=== PATIENT | female | born 1980 | race Caucasian/White ===

== ENCOUNTER 2023-03-22 09:25 | Inpatient (IN) | payer SELFPAY ==
[2023-03-22] VITALS (32 sets, daily range): BP systolic 113–151; BP diastolic 50–94; PULSE 100–129; RESP 11–23; TEMP 36.4–37.2; O2SAT 89–99; BMI 49.0
--- NOTE | ~2023-03-22 | CT_ITS ---
EXAMINATION: CT abdomen pelvis w con DATE: 03/22/2023 10:56 INDICATION: Right lower quadrant pain TECHNIQUE: Computed tomography (CT) of the abdomen and pelvis was performed with 100 mL Omnipaque-350 intravenous contrast. Automated exposure control and iterative reconstruction technique were employe d. The dose-length product was 1539.99 mGy-cm. COMPARISON: None FINDINGS: Lung bases are clear. Heart size is normal. No pericardial or pleural effusion. Liver, gallbladder, s pleen, pancreas, bilateral adrenal glands and kidneys are normal. There are few diverticula along the sigmoid colon with focal wall thickening and surrounding inflammatory stranding consistent with dive rticulitis. There is some extraluminal gas along the sigmoid mesentery and scattered throughout the p rimarily nondependent more cephalad abdomen. In the deep pelvis there are a couple small gas and flui d collections 3 x 1 cm in 2 x 1 cm with mild peripheral enhancement which could represent developing abscesses. No larger drainable abscess identified. Small bowel and appendix are normal. 1.9 cm periph erally enhancing corpus luteum cyst in the left ovary. Bladder, uterus and right adnexa are unremarka ble. No pathologically enlarged abdominal or pelvic lymphadenopathy. Moderate lower thoracic and lum bosacral spondylosis. 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 IMPRESSION: 1. Perforated sigmoid diverticulitis with small amount of scattered free peritoneal gas and minimal f luid. No drainable abscess. Reviewed, dictated and finalized at location A. IMPRESSION: 1. Perforated sigmoid diverticulitis with small amount of scattered free perito luann gas and minimal fluid. No drainable abscess.
--- NOTE | 2023-03-22 09:48 | ED.ABDPAIN ---
HPI - Abdominal Pain General Chief Complaint: Abdominal Pain Stated Complaint: lower abdominal pain Time Seen by Provider: 03/22/23 09:33 History of Present Illness HPI narrative: 42-year-old female no medical problems presents to the emergency room for evaluation of right lower quadrant pain that has been intermittent for 1 week. Patient describes the pain as a sharp and stabbing pain. Patient attempted taking naproxen and a stool softener with no relief. States pain does not radiate. Pain is worse with ambulation and movement. Denies fevers. Denies nausea vomiting diarrhea or constipation. Related Data Home Medications Medication Instructions Recorded Confirmed No Home Medications 03/22/23 03/22/23 Allergies Allergy/AdvReac Type Severity Reaction Status Date / Time No Known Allergies Allergy Verified 03/22/23 09:39 Review of Systems Review of Systems: CONSTITUTIONAL: Denies fever, chills, or sweats. EYES: Denies visual changes, redness, or discharge. ENT: Denies rhinorrhea, congestion, sore throat, or otalgia. CARDIOVASCULAR: Denies chest pain, palpitations, or edema. RESPIRATORY: Denies cough or dyspnea. GASTROINTESTINAL: Per HPI GENITOURINARY: Denies dysuria or hematuria. SKIN: Denies rash or itching. MUSCULOSKELETAL: Denies back pain, joint pain, or myalgia. NEUROLOGIC: Denies headache, numbness, dizziness, or weakness. PSYCHIATRIC: Denies anxiety or depression. Exam Narrative: GENERAL: Well-appearing, well-nourished, no physical limitations, and in no acute distress. HEAD: Normocephalic, atraumatic. EYES: Conjunctivae normal, PERRLA and EOMI. CHEST: Clear to auscultation. No respiratory distress. No wheezes rales or rhonchi. HEART: Regular rate and rhythm. No murmur heard. Normal peripheral pulses. ABDOMEN: Soft, RLQ tenderness, nondistended, normal active bowel sounds. Right. Positive psoas and obturator sign BACK: No CVA tenderness EXTREMITIES: Normal range of motion. No edema. No clubbing or cyanosis SKIN: Warm, dry, no rash. No noted wounds NEURO: No focal deficits. Alert and oriented x3. MAEW. CN's II-XI intact bilaterally, normal gait PSYCH: Cooperative. Normal mood and affect. Course Vital Signs Vital signs: Vital Signs Temperature 36.4 C L 03/22/23 09:27 Pulse Rate 129 H 03/22/23 09:27 Respiratory Rate 20 03/22/23 09:27 Blood Pressure 151/82 H 03/22/23 09:27 Pulse Oximetry 99 03/22/23 09:27 Oxygen Delivery Room Air 03/22/23 09:27 Temperature 36.4 C L 03/22/23 09:27 Pulse Rate 119 H 03/22/23 11:16 Respiratory Rate 19 03/22/23 11:16 Blood Pressure 135/76 03/22/23 11:16 Pulse Oximetry 96 03/22/23 11:16 Oxygen Delivery Room Air 03/22/23 09:27 MDM - Abdominal Pain MDM Narrative Medical decision making narrative: 42-year-old female no medical problems presented to the emergency room complaints of right lower quadrant pain for [address] scan shows a diverticulitis right lower quadrant with microperforation. Labs are unremarkable. Patient was given IV Zosyn. Discussed case with Dr. Ordaz. Will admit patient to hospital for IV antibiotics and hydration. Lab Data 03/22/23 09:47 03/22/23 09:47 Labs: Lab Results 03/22/23 03/22/23 03/22/23 Range/Units 09:47 09:55 11:22 WBC 10.3 H (4.5-10.0) K/mm3 RBC 4.53 (4.2-5.4) M/mm3 Hgb 13.8 (12.0-15.0) g/dL Hct 43.1 (37.0-47.0) % MCV 95.1 (80-100) fl MCH 30.5 (26-34) pg MCHC 32.0 (32-36) g/dl RDW 11.9 (11.5-14.5) % Plt Count 308 (150-375) k/mm3 MPV 10.9 H (7.4-10.4) fl Immature Gran % (Auto) 0.3 (0-0.5) % Neut % (Auto) 65.9 (45.5-73.1) % Lymph % (Auto) 22.4 (18.3-44.2) % [place] % (Auto) 9.0 H (2.6-8.5) % Eos % (Auto) 1.6 (0-4.4) % Baso % (Auto) 0.8 (0.2-1.2) % Lymph # (Auto) 2.32 (0.9-3.2) K/mm3 [place] # (Auto) 0.9 H (0.1-0.6) K/mm3 Eos # (Auto) 0.2 (0-0.3) K/mm3 B
[2023-03-22 09:56] LABS: Basophils Absolute Auto 0.1 K/mm3 (0.0-0.1); Basophils Percent Auto 0.8 % (0.2-1.2); Eosinophils Absolute Auto 0.2 K/mm3 (0-0.3); Eosinophils Percent Auto 1.6 % (0-4.4); Hematocrit 43.1 % (37.0-47.0); Hemoglobin 13.8 g/dL (12.0-15.0); Immature Granulocyte Absolute 0.03 K/mm3 (0.00-0.031); Immature Granulocyte Percent A 0.3 % (0-0.5); Lymphocytes Absolute Auto 2.32 K/mm3 (0.9-3.2); Lymphocytes Percent Auto 22.4 % (18.3-44.2); Mean Corpuscular Hemoglobin 30.5 pg (26-34); Mean Corpuscular Volume 95.1 fl (80-100); Mean Platelet Volume 10.9 fl (7.4-10.4); Monocytes Absolute Auto 0.9 K/mm3 (0.1-0.6); Neutrophils Absolute Auto 6.8 K/mm3 (1.3-6.7); Neutrophils Percent Auto 65.9 % (45.5-73.1); Platelet Count Result 308 k/mm3 (150-375); Red Blood Count 4.53 M/mm3 (4.2-5.4); Red Cell Distribution Width 11.9 % (11.5-14.5); White Blood Count 10.3 K/mm3 (4.5-10.0)
[2023-03-22] MEDS: SODIUM CHLORIDE 0.9% IV 1,000 ML 999 ML IV CONT (10:00)
[2023-03-22 10:12] LABS: Alanine Aminotransferase 31 U/L (6-35); Alkaline Phosphatase 156 U/L (38-126); Anion Gap 5 mmol/L (8-16); Aspartate Amino Transferase 29 U/L (14-36); Bilirubin,Total 0.4 mg/dL (0.2-1.3); Blood Urea Nitrogen 7 mg/dL (7-17); Carbon Dioxide 28 mmol/L (22-30); Chloride 100 mmol/L (98-107); Estimated CRCL calculation 140 ml/min; Estimated Glomerular Filt Rate > 60; Glucose 130 mg/dL (65-110); Lipase 85 U/L (23-300); Potassium 4.3 mmol/L (3.4-5.0); Sodium 133 mmol/L (137-145)
[2023-03-22 10:16] LABS: Appearance Urine Cloudy (Clear); Bacteria Urine 3+ /hpf; Bilirubin Urine 1+ (Negative); Blood Urine Negative (Negative); Color Urine Dark Yellow (Yellow); Glucose Urine UA Negative (Negative); Ketones Urine Trace mg/dL (Negative); Leukocyte Esterase Ur 1+ LEU/UL (Negative); Need Manual Microscopic Reviewed; Nitrate Urine Negative (Negative); Non Pathogenic Casts 0-2; Protein Urine 2+ mg/dL (Negative); Specific Grav Ur 1.031 (1.001-1.035); Squamous Epithelial Cell Urine Many /hpf (Few); WBC Urine 21-50 /hpf; pH Urine 5.5 (5.0-9.0)
[2023-03-22 11:09] LABS: Add Urine Microscopic? YES
[2023-03-22] MEDS: HYDROmorphone HCL INJ (*CRX) 1 MG/ML SYR IV PUSH (11:25)
[2023-03-22] MEDS: ONDANSETRON INJ 4 MG/2 ML VIAL IV PUSH (11:25)
[2023-03-22 11:36] LABS: Lactic Acid Reflex 0.8 mmol/L (0.7-2.0)
[2023-03-22] MEDS: PIPERACILLN/TAZ 3.375GM/NS50ML 3.375 GM/50 ML BAG IVPB ×2 (12:06→21:00)
--- NOTE | 2023-03-22 12:17 | PC.NURSE ---
pt is on 2L O2 per dr verbal order after pt SpO2 level steadily stayed around 89-91%. O2 level improved going to 96% after intervention.
--- NOTE | 2023-03-22 13:48 | ADMGEN ---
This patient, Carlene Adorno, was admitted to Medical Room 250-. Patient/family oriented to hospital policies and general routines including ID bracelet, bed and alarms, visiting hours, pain management, procedures, bathroom and other care routines, personal items, smoking policy, room service/diet, and visiting hours. Information on how to activate the Rapid Response Team has been discussed. Patient/Family are encouraged to report perceived risks to care and to ask questions if they do not understand what they are told or what they should do.
--- NOTE | 2023-03-22 14:46 | PM.IMHP ---
H&P: HPI History of Present Illness Date/Time: 03/22/23 16:15 Chief Complaint: Abdominal pain. Narrative: This is a very pleasant 42-year-old female smoker with no reported medical history who presented to the emergency department via private vehicle from home for evaluation of abdominal pain. The patient provides the following history. She gives a 7 day history of intermittent sharp and stabbing pain in the right lower quadrant without significant radiation. The pain is worse with movement, ambulation, and palpation. Initially she thought she was perhaps constipated show she took a stool softener without relief. Naproxen has not helped her pain much. Last bowel movement was today and was a little soft but there was no blood or mucus noted. She does endorse pain with bowel movements the last few days. No fever, chills, or sweats. No history of similar symptoms. CT of the abdomen and pelvis showed perforated sigmoid diverticulitis with a small amount of scattered free peritoneal gas and minimal fluid with no drainable abscess noted. She was started on Zosyn in the ED and is being admitted in this setting for further treatment. She has no prior history of diverticulitis. Review of Systems Review of Systems: Twelve systems were reviewed and are negative except for as per HPI. [facility] Past Medical History Medical History (Updated 03/22/23 @ 20:09 by Nelida Erwin PA-C) Tobacco dependence Surgical History Surgical History (Updated 03/22/23 @ 20:06 by Nelida Erwin PA-C) No history of previous surgery Family History Family History (Updated 03/22/23 @ 20:06 by Nelida Erwin PA-C) Other Family history non-contributory Social History Social History (Updated 03/22/23 @ 20:06 by Nelida Erwin PA-C) Social History: Surrogate medical decision maker: Susanna Davies, significant other. Code status: Full code. Smoking packs per day: 1 Smoking cigarettes per day: 20.0 Smoking status: Current every day smoker Tobacco type: cigarettes Alcohol intake: current Drinks per week: 4 Substance use: current Substance use type: marijuana Last use: 03/21/23 Lack of Transportation: No Lack of Food: Never True Current Housing: I Have Housing Concerned About Future Housing: No Difficulty Paying Gas/Electric Bills: No Difficulty Paying for Meds: No Currently Unemployed: No Education: High School Diploma/GED Difficulty w/ Childcare or Family Care: No Spiritual care concerns: No Meds Home Medications and Allergies Home Medications Medication Instructions Recorded Confirmed Type No Home Medications 03/22/23 03/22/23 History Allergies Allergy/AdvReac Type Severity Reaction Status Date / Time No Known Allergies Allergy Verified 03/22/23 09:39 Vital Signs Vital Signs - 24 hr 03/22/23 09:27 03/22/23 09:32 03/22/23 09:33 Temperature 97.5 F L Pulse Rate 129 H 122 H Respiratory Rate 20 17 Blood Pressure 151/82 H 134/94 H Pulse Oximetry 99 97 98 Oxygen Delivery Room Air Oxygen Flow Rate 03/22/23 09:45 03/22/23 10:00 03/22/23 10:01 Temperature Pulse Rate 115 H 116 H 117 H Respiratory Rate 15 17 20 Blood Pressure 118/92 H Pulse Oximetry 97 96 98 Oxygen Delivery Oxygen Flow Rate 03/22/23 10:19 03/22/23 10:58 03/22/23 11:06 Temperature Pulse Rate 115 H 114 H 112 H Respiratory Rate 20 17 17 Blood Pressure Pulse Oximetry 95 99 96 Oxygen Delivery Oxygen Flow Rate 03/22/23 11:11 03/22/23 11:16 03/22/23 12:40 Temperature Pulse Rate 112 H 119 H 114 H Respiratory Rate 19 19 18 Blood Pressure 116/71 135/76 118/72 Pulse Oximetry 89 L 96 94 Oxygen Delivery Oxygen Flow Rate 03/22/23 12:17 03/22/23 11:12 03/22/23 11:15 Temperature Pulse Rate 114 H 114 H Respiratory Rate 18 16 Blood Pressure 135/76 Pulse Oximetry 96 97 99 Oxygen Delivery Nasal Cannula Oxygen Flow Rate 2 03/22/23 1
[2023-03-22] MEDS: HYDROmorphone HCL INJ (*CRX) 1 MG/ML SYR 0.5 MG IV PUSH (16:13)
[2023-03-22] MEDS: MORPHINE SULFATE (*CRX) 4 MG/ML INJ IV PUSH (20:17)
[2023-03-22] MEDS: LACTATED RINGERS 1,000 ML 100 ML IV CONT (21:00)
[2023-03-23] VITALS (8 sets, daily range): BP systolic 119–126; BP diastolic 63–78; PULSE 72–112; RESP 16–18; TEMP 36.6–37; O2SAT 90–97
--- NOTE | 2023-03-23 03:55 | PC.NURSE ---
On 03/22/23-03/23/23, the RN license pending, Luis Daniel Roach, provided care and completed [facility] documentation on this patient. I have reviewed the RN's documentation and agree with the findings.
[2023-03-23] MEDS: PIPERACILLN/TAZ 3.375GM/NS50ML 3.375 GM/50 ML BAG IVPB ×4 (05:12→23:16)
[2023-03-23] MEDS: LACTATED RINGERS 1,000 ML 100 ML IV CONT ×3 (05:13→21:13)
[2023-03-23 05:19] LABS: Hematocrit 40.2 % (37.0-47.0); Hemoglobin 12.7 g/dL (12.0-15.0); Mean Corpuscular HGB Conc 31.6 g/dl (32-36); Mean Corpuscular Hemoglobin 30.6 pg (26-34); Mean Corpuscular Volume 96.9 fl (80-100); Mean Platelet Volume 10.7 fl (7.4-10.4); Platelet Count Result 314 k/mm3 (150-375); Red Blood Count 4.15 M/mm3 (4.2-5.4); Red Cell Distribution Width 11.9 % (11.5-14.5); White Blood Count 14.1 K/mm3 (4.5-10.0)
[2023-03-23 05:36] LABS: Anion Gap 10 mmol/L (8-16); Blood Urea Nitrogen 7 mg/dL (7-17); Calcium 8.6 mg/dL (8.4-10.2); Carbon Dioxide 28 mmol/L (22-30); Chloride 97 mmol/L (98-107); Estimated CRCL calculation 123 ml/min; Estimated Glomerular Filt Rate > 60; Glucose 103 mg/dL (65-110); Magnesium 1.9 mg/dL (1.6-2.3); Sodium 135 mmol/L (137-145)
[2023-03-23] MEDS: MORPHINE SULFATE (*CRX) 2 MG/ML INJ IV PUSH ×4 (05:54→21:10)
--- NOTE | 2023-03-23 10:54 | WPDCN ---
Assessment and Plan Assessment and plan (1) Diverticulitis of colon with perforation: Code(s): K57.20 - Diverticulitis of large intestine with perforation and abscess without bleeding Status: Acute Assessment and Plan: Patient has been admitted to the hospital with sigmoid diverticulitis with micro perforation and no pelvic abscess. Will start her on Zosyn for IV antibiotic coverage and bowel rest with NPO status for now. On examination she has no evidence of acute surgical abdomen although she is mildly tender. Will continue with this course of non operative management and the likelihood is that she will improve over time. Discussed with her the need to do a colonoscopy in about 4 to 6 weeks after the inflammation has resolved. She is in agreement with this plan. Repeat her labs tomorrow and continue serial abdominal exams. HPI Data of Consult Date/Time: 03/23/23 10:54 Requesting Physician: Patrick Little MD Primary Care Provider: PHYSICIAN NOT ON STAFF Consult Narrative Reason for consult: Sigmoid diverticulitis with microperforation Narrative: Carlene Adorno is a 42 year old female presented to the emergency room on March 22, 2023 complaining of a 7 day history of gradually worsening lower abdominal pain which was worse on the right side. No nausea or vomiting. No subjective fevers at home. [place] count was [address] and she was hemodynamically stable. CT scan abdomen pelvis showed evidence of diverticulitis without pelvic abscess. There was some scattered foci of free air suggesting microperforation. No significant free fluid or abscess was noted that could be drained and no feculent peritonitis was noted. She has never had an episode of diverticulitis in the past. She has never had a colonoscopy. There is no family history of colon cancer. She tends to be very regular with her bowel movements. She has never had any previous abdominal surgery. Review of Systems Review of Systems: The remainder of the review of systems to include constitutional, HEENT, cardiovascular, respiratory, GI, , integumentary, musculoskeletal, endocrine, immunologic, hematologic, psychiatric, and neurologic are all negative except for which is mentioned above in the HPI. [facility] Past Medical History Medical History Tobacco dependence Surgical History Surgical History No history of previous surgery Family History Family History Other Family history non-contributory Social History Social History Social History: Surrogate medical decision maker: Susanna Davies, significant other. Code status: Full code. Smoking packs per day: 1 Smoking cigarettes per day: 20.0 Smoking status: Current every day smoker Tobacco type: cigarettes Alcohol intake: current Drinks per week: 4 Substance use: current Substance use type: marijuana Last use: 03/21/23 Lack of Transportation: No Lack of Food: Never True Current Housing: I Have Housing Concerned About Future Housing: No Difficulty Paying Gas/Electric Bills: No Difficulty Paying for Meds: No Currently Unemployed: No Education: High School Diploma/GED Difficulty w/ Childcare or Family Care: No Spiritual care concerns: No Meds Home Medications and Allergies Home Medications Medication Instructions Recorded Confirmed Type No Home Medications 03/22/23 03/22/23 History Allergies Allergy/AdvReac Type Severity Reaction Status Date / Time No Known Allergies Allergy Verified 03/22/23 09:39 Vital Signs Vital Signs - 24 hr 03/22/23 10:58 03/22/23 11:06 03/22/23 11:11 Temperature Pulse Rate 114 H 112 H 112 H Respiratory Rate 17 17 19 Blood Pressure 116/71 Pulse Oximetry 99 96
--- NOTE | 2023-03-23 13:17 | PM.IMPN ---
Progress Note: A&P Assessment and Plan (1) Diverticulitis of colon with perforation: Code(s): K57.20 - Diverticulitis of large intestine with perforation and abscess without bleeding Status: Acute Assessment and Plan: CT scan shows sigmoid diverticulitis with evidence of perforation but no abscess. Continue bowel rest and IV Zosyn. Dr. Ordaz has been consulted and his input is greatly appreciated. Analgesics and antiemetics are available as needed. General surgery recommending bowel rest and non surgical management for now (2) Abnormal urinalysis: Code(s): R82.90 - Unspecified abnormal findings in urine Status: Acute Assessment and Plan: Urine is abnormal though she does not have symptoms of UTI. Urine cultures pending. (3) Tobacco dependence: Code(s): F17.200 - Nicotine dependence, unspecified, uncomplicated Status: Acute Assessment and Plan: Smoking cessation is encouraged and was discussed. She declines the need for a nicotine patch. Subjective Date/time seen: 03/23/23 13:17 Interval history: Patient continues to have abdominal pain but it is better from presentation. She janeen N/V/D, melena, hematochezia, dysuria. Continue with bowel rest. Review of Systems Review of Systems: GENERAL: Comfortable, no acute distress HENMT: moist mucous membranes EYES: EOM intact b/l NECK: no lymphadenopathy RESPIRATORY: clear to auscultation CARDIO: RRR GI: soft, right lower quadrant tenderness, bowel sounds present, no rebound tenderness, negative Coleman sign SKIN: no rashes EXTREMITIES: no edema, redness or tenderness Exam Narrative: GENERAL: Comfortable, no acute distress HENMT: moist mucous membranes EYES: EOM intact b/l NECK: no lymphadenopathy RESPIRATORY: diffuse expiratory wheezing. CARDIO: RRR GI: soft, nontender, bowel sounds present SKIN: no rashes EXTREMITIES: no edema, redness or tenderness Objective Data Vital Signs Vital Signs: Vital Signs - 24 hr 03/22/23 13:50 03/22/23 13:50 03/22/23 16:15 Temperature 98.9 F Pulse Rate 128 H 107 H Respiratory Rate 22 H Blood Pressure 148/86 H Pulse Oximetry 93 Oxygen Delivery Room Air 03/22/23 20:06 03/22/23 20:00 03/23/23 05:07 Temperature 98.0 F 97.8 F Pulse Rate 100 112 H Respiratory Rate 16 16 Blood Pressure 127/72 121/78 Pulse Oximetry 97 90 Oxygen Delivery Room Air 03/23/23 08:00 Temperature Pulse Rate Respiratory Rate Blood Pressure Pulse Oximetry Oxygen Delivery Room Air Intake/Output Intake/Output: Intake & Output 03/20/23 03/21/23 03/22/23 03/23/23 23:59 23:59 23:59 23:59 Intake Total 1100 1050 Balance 1100 1050 Meds/Results Medications: Active Medications Generic Name Dose Route Start Last Admin Trade Name Freq PRN Reason Stop Dose Admin Albuterol 2.5 mg 03/23/23 14:00 Albuterol Sulfate Neb 2.5 Mg/3 Ml Inh INHALATION Q6HRT NOREEN Piperacillin/Tazobactam/Dextrose 3.375 gm in 50 mls @ 100 mls/hr 03/22/23 21:00 03/23/23 13:02 Zosyn 3.375 Gm/Ns 50 Ml IVPB 100 mls/hr Q6HR NOREEN Administration Lactated Ringer's 1,000 mls @ 100 mls/hr 03/22/23 20:15 03/23/23 11:17 Lr - Lactated Ringers Iv IV CONT 100 mls/hr .Q10H NOREEN Administration Ipratropium [place] 0.5 mg 03/23/23 14:00 Ipratropium Br 0.02% Inh Soln 0.5 Mg/2.5 Ml Vial INHALATION Q6HRT NOREEN Morphine Sulfate 2 mg 03/23/23 05:42 03/23/23 11:11 Morphine Sulfate (*Crx) 2 Mg/Ml Inj IV PUSH 2 mg Q2H PRN Administration Pain Rated 7-10 Ondansetron HCl 4 mg 03/22/23 12:32 Ondansetron Inj 4 Mg/2 Ml Vial IV PUSH Q4H PRN Nausea Radiology Results: ITS Impressions Abdomen/Pelvis CT 03/22/23 11:00 IMPRESSION: 1. Perforated sigmoid diverticulitis with small amount of scattered free peritoneal gas and minimal fluid. No drainable abscess. Labs Labs: Lab
[2023-03-23] MEDS: IPRATROPIUM BR 0.02% INH SOLN 0.5 MG/2.5 ML VIAL INHALATION ×2 (13:30→20:42)
[2023-03-23] MEDS: ALBUTEROL SULFATE NEB 2.5 MG/3 ML INH INHALATION ×2 (13:30→20:42)
--- NOTE | 2023-03-23 16:52 | PC.NURSE ---
On 03/23/23, the Licence pending nurse, Lynn Santo, provided care and completed [facility] documentation on this patient. I have reviewed the Licence pending nurse's documentation and agree with the findings.
[2023-03-23] MEDS: ONDANSETRON INJ 4 MG/2 ML VIAL IV PUSH (19:05)
[2023-03-24] VITALS (14 sets, daily range): BP systolic 105–111; BP diastolic 57–69; PULSE 90–109; RESP 16–19; TEMP 36.7–37.4; O2SAT 91–97
[2023-03-24] MEDS: IPRATROPIUM BR 0.02% INH SOLN 0.5 MG/2.5 ML VIAL INHALATION ×4 (02:30→20:10)
[2023-03-24] MEDS: ALBUTEROL SULFATE NEB 2.5 MG/3 ML INH INHALATION ×4 (02:30→20:10)
[2023-03-24 05:06] LABS: Anion Gap 5 mmol/L (8-16); Basophils Absolute Auto 0.1 K/mm3 (0.0-0.1); Basophils Percent Auto 0.6 % (0.2-1.2); Blood Urea Nitrogen 8 mg/dL (7-17); Calcium 8.3 mg/dL (8.4-10.2); Carbon Dioxide 30 mmol/L (22-30); Chloride 100 mmol/L (98-107); Eosinophils Absolute Auto 0.1 K/mm3 (0-0.3); Eosinophils Percent Auto 0.9 % (0-4.4); Estimated CRCL calculation 123 ml/min; Estimated Glomerular Filt Rate > 60; Glucose 97 mg/dL (65-110); Hemoglobin 11.1 g/dL (12.0-15.0); Immature Granulocyte Absolute 0.04 K/mm3 (0.00-0.031); Immature Granulocyte Percent A 0.4 % (0-0.5); Lymphocytes Absolute Auto 2.12 K/mm3 (0.9-3.2); Lymphocytes Percent Auto 20.1 % (18.3-44.2); Mean Corpuscular HGB Conc 31.7 g/dl (32-36); Mean Corpuscular Hemoglobin 30.7 pg (26-34); Mean Platelet Volume 11.2 fl (7.4-10.4); Monocytes Percent Auto 9.2 % (2.6-8.5); Neutrophils Absolute Auto 7.3 K/mm3 (1.3-6.7); Neutrophils Percent Auto 68.8 % (45.5-73.1); Platelet Count Result 288 k/mm3 (150-375); Potassium 3.6 mmol/L (3.4-5.0); Red Blood Count 3.61 M/mm3 (4.2-5.4); Red Cell Distribution Width 11.8 % (11.5-14.5); Sodium 135 mmol/L (137-145); White Blood Count 10.6 K/mm3 (4.5-10.0)
[2023-03-24] MEDS: PIPERACILLN/TAZ 3.375GM/NS50ML 3.375 GM/50 ML BAG IVPB ×4 (05:21→23:17)
--- NOTE | 2023-03-24 06:44 | PC.NURSE ---
On 03/23/23-03/24/23, the license pending RN, Luis Daniel Roach, provided care and completed [employer] documentation on this patient. I have reviewed the RNs documentation and agree with the findings.
[2023-03-24] MEDS: LACTATED RINGERS 1,000 ML 100 ML IV CONT ×2 (07:58→22:03)
--- NOTE | 2023-03-24 12:45 | PM.IMPN ---
Progress Note: A&P Assessment and Plan (1) Diverticulitis of colon with perforation: Code(s): K57.20 - Diverticulitis of large intestine with perforation and abscess without bleeding Status: Acute Assessment and Plan: CT scan shows sigmoid diverticulitis with evidence of perforation but no abscess. IV Zosyn. Dr. Ordaz has been consulted and his input is greatly appreciated. Analgesics and antiemetics are available as needed. Advance diet to clear liquids. (2) Abnormal urinalysis: Code(s): R82.90 - Unspecified abnormal findings in urine Status: Acute Assessment and Plan: Urine is abnormal though she does not have symptoms of UTI. Urine culture negative (3) Tobacco dependence: Code(s): F17.200 - Nicotine dependence, unspecified, uncomplicated Status: Acute Assessment and Plan: Smoking cessation is encouraged and was discussed. She declines the need for a nicotine patch. Subjective Date/time seen: 03/24/23 12:45 Interval history: Abdominal pain is much improved. Patient having very mild discomfort but otherwise doing well. General surgery advancing patient's diet to clear liquids. She denies any nausea, vomiting and diarrhea. Exam Narrative: GENERAL: Comfortable, no acute distress HENMT: moist mucous membranes EYES: EOM intact b/l NECK: no lymphadenopathy RESPIRATORY: diffuse expiratory wheezing. CARDIO: RRR GI: soft, nontender, bowel sounds present SKIN: no rashes EXTREMITIES: no edema, redness or tenderness Objective Data Vital Signs Vital Signs: Vital Signs - 24 hr 03/23/23 13:37 03/23/23 13:38 03/23/23 13:44 Temperature Pulse Rate 72 74 75 Respiratory Rate 18 18 18 Blood Pressure Pulse Oximetry 97 Oxygen Delivery Room Air Fraction of Inspired Oxygen 03/23/23 14:00 03/23/23 19:29 03/23/23 19:45 Temperature 98.4 F 98.6 F Pulse Rate 109 H 104 H Respiratory Rate 16 16 Blood Pressure 126/73 119/63 Pulse Oximetry 96 90 Oxygen Delivery Room Air Fraction of Inspired Oxygen 03/23/23 20:42 03/23/23 20:49 03/24/23 05:07 Temperature 98.2 F Pulse Rate 75 75 109 H Respiratory Rate 18 18 16 Blood Pressure 109/57 L Pulse Oximetry 91 Oxygen Delivery Fraction of Inspired Oxygen 03/24/23 02:25 03/24/23 02:31 03/24/23 07:17 Temperature Pulse Rate 103 H 104 H Respiratory Rate 18 18 Blood Pressure Pulse Oximetry 93 Oxygen Delivery Room Air Fraction of Inspired Oxygen 21 03/24/23 07:17 03/24/23 07:42 03/24/23 08:00 Temperature Pulse Rate 102 H 108 H Respiratory Rate 18 18 Blood Pressure Pulse Oximetry Oxygen Delivery Room Air Fraction of Inspired Oxygen Intake/Output Intake/Output: Intake & Output 03/21/23 03/22/23 03/23/23 03/24/23 23:59 23:59 23:59 23:59 Intake Total 1100 2200 1100 Balance 1100 2200 1100 Meds/Results Medications: Active Medications Generic Name Dose Route Start Last Admin Trade Name Freq PRN Reason Stop Dose Admin Albuterol 2.5 mg 03/23/23 14:00 03/24/23 07:17 Albuterol Sulfate Neb 2.5 Mg/3 Ml Inh INHALATION 2.5 mg Q6HRT NOREEN Administration Piperacillin/Tazobactam/Dextrose 3.375 gm in 50 mls @ 100 mls/hr 03/22/23 21:00 03/24/23 12:05 Zosyn 3.375 Gm/Ns 50 Ml IVPB Infused Q6HR NOREEN Infusion Lactated Ringer's 1,000 mls @ 100 mls/hr 03/22/23 20:15 03/24/23 07:58 Lr - Lactated Ringers Iv IV CONT 100 mls/hr .Q10H NOREEN Administration Ipratropium [place] 0.5 mg 03/23/23 14:00 03/24/23 07:17 Ipratropium Br 0.02% Inh Soln 0.5 Mg/2.5 Ml Vial INHALATION 0.5 mg Q6HRT NOREEN Administration Morphine Sulfate 2 mg 03/23/23 05:42 03/23/23 21:10 Morphine Sulfate (*Crx) 2 Mg/Ml Inj IV PUSH 2 mg Q2H PRN Administration Pain Rated 7-10 Ondansetron HCl 4 mg 03/22/23 12:32 03/23/23 19:05 Ondansetron Inj 4 Mg/2 Ml Vial IV PUSH 4 mg Q4H TN
[2023-03-25] VITALS (13 sets, daily range): BP systolic 108–128; BP diastolic 72–74; PULSE 86–100; RESP 16–20; TEMP 36.2–37.1; O2SAT 94–100
[2023-03-25] MEDS: ALBUTEROL SULFATE NEB 2.5 MG/3 ML INH INHALATION ×4 (02:09→17:49)
[2023-03-25] MEDS: IPRATROPIUM BR 0.02% INH SOLN 0.5 MG/2.5 ML VIAL INHALATION ×4 (02:09→17:49)
[2023-03-25 05:34] LABS: Basophils Absolute Auto 0.1 K/mm3 (0.0-0.1); Basophils Percent Auto 0.6 % (0.2-1.2); Eosinophils Absolute Auto 0.2 K/mm3 (0-0.3); Eosinophils Percent Auto 1.9 % (0-4.4); Hematocrit 35.4 % (37.0-47.0); Hemoglobin 11.4 g/dL (12.0-15.0); Immature Granulocyte Absolute 0.02 K/mm3 (0.00-0.031); Immature Granulocyte Percent A 0.2 % (0-0.5); Lymphocytes Absolute Auto 1.99 K/mm3 (0.9-3.2); Lymphocytes Percent Auto 24.6 % (18.3-44.2); Mean Corpuscular HGB Conc 32.2 g/dl (32-36); Mean Corpuscular Hemoglobin 30.6 pg (26-34); Mean Corpuscular Volume 94.9 fl (80-100); Mean Platelet Volume 10.8 fl (7.4-10.4); Monocytes Absolute Auto 0.7 K/mm3 (0.1-0.6); Monocytes Percent Auto 8.6 % (2.6-8.5); Neutrophils Absolute Auto 5.2 K/mm3 (1.3-6.7); Neutrophils Percent Auto 64.1 % (45.5-73.1); Platelet Count Result 281 k/mm3 (150-375); Red Blood Count 3.73 M/mm3 (4.2-5.4); Red Cell Distribution Width 11.9 % (11.5-14.5); White Blood Count 8.1 K/mm3 (4.5-10.0)
[2023-03-25 05:45] LABS: Alanine Aminotransferase 18 U/L (6-35); Albumin Level 3.4 g/dL (3.5-5.1); Alkaline Phosphatase 116 U/L (38-126); Anion Gap 7 mmol/L (8-16); Aspartate Amino Transferase 21 U/L (14-36); Bilirubin,Total 0.6 mg/dL (0.2-1.3); Blood Urea Nitrogen 3 mg/dL (7-17); Calcium 8.1 mg/dL (8.4-10.2); Carbon Dioxide 25 mmol/L (22-30); Chloride 99 mmol/L (98-107); Estimated CRCL calculation 142 ml/min; Estimated Glomerular Filt Rate > 60; Glucose 92 mg/dL (65-110); Potassium 3.6 mmol/L (3.4-5.0); Sodium 131 mmol/L (137-145)
[2023-03-25] MEDS: PIPERACILLN/TAZ 3.375GM/NS50ML 3.375 GM/50 ML BAG IVPB ×4 (05:46→23:42)
[2023-03-25] MEDS: ENOXAPARIN 40 MG/0.4 ML SYRINGE SUB-Q (09:50)
--- NOTE | 2023-03-25 12:04 | PM.IMPN ---
Progress Note: A&P Assessment and Plan (1) Diverticulitis of colon with perforation: Code(s): K57.20 - Diverticulitis of large intestine with perforation and abscess without bleeding Status: Acute Assessment and Plan: CT scan shows sigmoid diverticulitis with evidence of perforation but no abscess. IV Zosyn. Dr. Ordaz has been consulted and his input is greatly appreciated. Analgesics and antiemetics are available as needed. Advance diet as tolerated. If she continues to do well possible discharge tomorrow. (2) Abnormal urinalysis: Code(s): R82.90 - Unspecified abnormal findings in urine Status: Acute Assessment and Plan: Urine is abnormal though she does not have symptoms of UTI. Urine culture negative (3) Tobacco dependence: Code(s): F17.200 - Nicotine dependence, unspecified, uncomplicated Status: Acute Assessment and Plan: Smoking cessation is encouraged and was discussed. She declines the need for a nicotine patch. Subjective Date/time seen: 03/25/23 12:04 Interval history: Patient feeling much better today. Plan on advancing diet as tolerated. Possible discharge tomorrow if she continues to do well. Would like her to be cleared by General surgery 1st. Exam Narrative: GENERAL: Comfortable, no acute distress HENMT: moist mucous membranes EYES: EOM intact b/l NECK: no lymphadenopathy RESPIRATORY: diffuse expiratory wheezing. CARDIO: RRR GI: soft, nontender, bowel sounds present SKIN: no rashes EXTREMITIES: no edema, redness or tenderness Objective Data Vital Signs Vital Signs: Vital Signs - 24 hr 03/24/23 13:38 03/24/23 13:50 03/24/23 14:15 Temperature 99.4 F Pulse Rate 106 H 98 104 H Respiratory Rate 18 18 19 Blood Pressure 111/69 Pulse Oximetry 92 Oxygen Delivery Fraction of Inspired Oxygen 03/24/23 14:55 03/24/23 20:11 03/24/23 20:13 Temperature 98.8 F Pulse Rate 92 Respiratory Rate 18 Blood Pressure Pulse Oximetry 97 Oxygen Delivery Room Air Fraction of Inspired Oxygen 03/24/23 20:19 03/24/23 20:00 03/24/23 22:53 Temperature 98.0 F Pulse Rate 90 90 98 Respiratory Rate 18 18 18 Blood Pressure 105/61 Pulse Oximetry 97 96 Oxygen Delivery Room Air Fraction of Inspired Oxygen 03/25/23 02:09 03/25/23 02:21 03/25/23 06:42 Temperature 97.2 F L Pulse Rate 93 100 95 Respiratory Rate 16 16 16 Blood Pressure 108/72 Pulse Oximetry 94 Oxygen Delivery Fraction of Inspired Oxygen 03/25/23 08:16 03/25/23 08:18 03/25/23 08:31 Temperature Pulse Rate 86 87 Respiratory Rate 16 16 Blood Pressure Pulse Oximetry 94 Oxygen Delivery Room Air Fraction of Inspired Oxygen 03/25/23 09:50 Temperature Pulse Rate Respiratory Rate Blood Pressure Pulse Oximetry Oxygen Delivery Room Air Fraction of Inspired Oxygen Intake/Output Intake/Output: Intake & Output 03/22/23 03/23/23 03/24/23 03/25/23 23:59 23:59 23:59 23:59 Intake Total 1100 2200 3460 700 Balance 1100 2200 3460 700 Meds/Results Medications: Active Medications Generic Name Dose Route Start Last Admin Trade Name Freq PRN Reason Stop Dose Admin Albuterol 2.5 mg 03/23/23 14:00 03/25/23 08:16 Albuterol Sulfate Neb 2.5 Mg/3 Ml Inh INHALATION 2.5 mg Q6HRT NOREEN Administration Enoxaparin Sodium 40 mg 03/25/23 09:00 03/25/23 09:50 Enoxaparin 40 Mg/0.4 Ml Syringe SUB-Q 40 mg DAILY NOREEN Administration Piperacillin/Tazobactam/Dextrose 3.375 gm in 50 mls @ 100 mls/hr 03/22/23 21:00 03/25/23 05:46 Zosyn 3.375 Gm/Ns 50 Ml IVPB 100 mls/hr Q6HR NOREEN Administration Ipratropium [place] 0.5 mg 03/23/23 14:00 03/25/23 08:16 Ipratropium Br 0.02% Inh Soln 0.5 Mg/2.5 Ml Vial INHALATION 0.5 mg Q6HRT NOREEN Administration Morphine Sulfate 2 mg 03/23/23 05:42 03/23/23 21:10 Morphine Sulfate (*Crx) 2 Mg/Ml Inj I
--- NOTE | 2023-03-25 16:15 | PM.PNGS ---
Progress Note: A&P Assessment and Plan (1) Diverticulitis of colon with perforation: Code(s): K57.20 - Diverticulitis of large intestine with perforation and abscess without bleeding Status: Acute Assessment and Plan: Continues to improve nicely. Will advance to low-fiber diet for supper. Encourage ambulation. Possibly home tomorrow on oral antibiotics if continues to improve and labs are satisfactory. Subjective Subjective Date/Time Seen: 03/25/23 16:15 Patient reports: feels better, pain is less, tolerating liquids well, bowel movement and afebrile Review of Systems Review of Systems: All systems reviewed & are unremarkable except as noted in HPI and below (HPI and those items noted below) Constitutional: Constitutional: Denies chills and Denies fever(s) Cardiovascular: Cardiovascular: Denies chest pain, Denies diaphoresis, Denies dyspnea and Denies paroxysmal nocturnal dyspnea Respiratory: Respiratory: Denies chest congestion, Denies cough and Denies dyspnea Integumentary/Breasts: Skin/Breast: Denies lesions and Denies rash Exam Const: General: cooperative, comfortable, no acute distress, alert, awake and obese Orientation/consciousness: patient oriented x3 GI: Inspection: non-distended and obesity GI Palp: Yes Soft to palpation, Yes Tenderness to palpation present (GI) (Mild right suprapubic tenderness), No Guarding due to palpation present (GI), No Hernia present, No Palpable mass present, No Ascites present and No Rebound tenderness present Auscultation: normal bowel sounds Neuro: General: patient oriented x3 and no focal motor deficits Extrem: General: no calf tenderness and no edema Psych: Affect: normal affect Insight: Good insight present (Psych) Judgement: Good judgement present (Psych) Objective Data Vital Signs Vital Signs: Vital Signs - 24 hr 03/24/23 20:11 03/24/23 20:13 03/24/23 20:19 Temperature Pulse Rate 92 90 Respiratory Rate 18 18 Blood Pressure Pulse Oximetry 97 Oxygen Delivery Room Air Fraction of Inspired Oxygen 03/24/23 20:00 03/24/23 22:53 03/25/23 02:09 Temperature 36.7 C Pulse Rate 90 98 93 Respiratory Rate 18 18 16 Blood Pressure 105/61 Pulse Oximetry 97 96 Oxygen Delivery Room Air Fraction of Inspired Oxygen 21 03/25/23 02:21 03/25/23 06:42 03/25/23 08:16 Temperature 36.2 C L Pulse Rate 100 95 86 Respiratory Rate 16 16 16 Blood Pressure 108/72 Pulse Oximetry 94 Oxygen Delivery Fraction of Inspired Oxygen 03/25/23 08:18 03/25/23 08:31 03/25/23 09:50 Temperature Pulse Rate 87 Respiratory Rate 16 Blood Pressure Pulse Oximetry 94 Oxygen Delivery Room Air Room Air Fraction of Inspired Oxygen 03/25/23 13:42 03/25/23 13:57 03/25/23 14:00 Temperature 36.9 C Pulse Rate 91 93 98 Respiratory Rate 16 18 18 Blood Pressure 128/73 Pulse Oximetry 100 Oxygen Delivery Fraction of Inspired Oxygen Intake/Output Intake/Output: Intake & Output 03/22/23 03/23/23 03/24/23 03/25/23 23:59 23:59 23:59 23:59 Intake Total 1100 2200 3460 1640 Balance 1100 2200 3460 1640 Meds/Results Medications: Active Medications Generic Name Dose Route Start Last Admin Trade Name Freq PRN Reason Stop Dose Admin Albuterol 2.5 mg 03/23/23 14:00 03/25/23 13:42 Albuterol Sulfate Neb 2.5 Mg/3 Ml Inh INHALATION 2.5 mg Q6HRT NOREEN Administration Enoxaparin Sodium 40 mg 03/25/23 09:00 03/25/23 09:50 Enoxaparin 40 Mg/0.4 Ml Syringe SUB-Q 40 mg DAILY NOREEN Administration Piperacillin/Tazobactam/Dextrose 3.375 gm in 50 mls @ 100 mls/hr 03/22/23 21:00 03/25/23 12:59 Zosyn 3.375 Gm/Ns 50 Ml IVPB Infused Q6HR NOREEN Infusion Ipratropium [place] 0.5 mg 03/23/23 14:00 03/25/23 13:42 Ipratropium Br 0.02% Inh Soln 0.5 Mg/2.5 Ml Vial INHALATION 0.5 mg Q6HRT NOREEN Administration Morphine Sulfate 2 mg 03/23/23 05:42 03/23/23 21:10 Morphine Sulfate (*Crx
[2023-03-25] MEDS: MELATONIN 5 MG TABLET PO (21:39)
[2023-03-26] MEDS: ALBUTEROL SULFATE NEB 2.5 MG/3 ML INH INHALATION ×2 (01:29→06:10)
[2023-03-26] MEDS: IPRATROPIUM BR 0.02% INH SOLN 0.5 MG/2.5 ML VIAL INHALATION ×2 (01:29→06:11)
[2023-03-26 01:31] VITALS: PULSE 98; RESP 18; O2SAT 94
[2023-03-26 01:45] VITALS: PULSE 100; RESP 18
[2023-03-26 04:38] LABS: Hematocrit 36.9 % (37.0-47.0); Hemoglobin 11.7 g/dL (12.0-15.0); Mean Corpuscular HGB Conc 31.7 g/dl (32-36); Mean Corpuscular Hemoglobin 30.5 pg (26-34); Mean Corpuscular Volume 96.1 fl (80-100); Platelet Count Result 299 k/mm3 (150-375); Red Blood Count 3.84 M/mm3 (4.2-5.4); Red Cell Distribution Width 11.9 % (11.5-14.5)
[2023-03-26 04:55] LABS: Anion Gap 4 mmol/L (8-16); Blood Urea Nitrogen 2 mg/dL (7-17); Calcium 8.5 mg/dL (8.4-10.2); Carbon Dioxide 30 mmol/L (22-30); Chloride 102 mmol/L (98-107); Estimated CRCL calculation 123 ml/min; Estimated Glomerular Filt Rate > 60; Glucose 104 mg/dL (65-110); Potassium 3.8 mmol/L (3.4-5.0); Sodium 136 mmol/L (137-145)
[2023-03-26 05:14] VITALS: BP 113/52; PULSE 87; RESP 20; TEMP 36.7; O2SAT 96
[2023-03-26] MEDS: PIPERACILLN/TAZ 3.375GM/NS50ML 3.375 GM/50 ML BAG IVPB (05:32)
[2023-03-26 06:12] VITALS: PULSE 86; RESP 18
[2023-03-26] MEDS: ENOXAPARIN 40 MG/0.4 ML SYRINGE SUB-Q (10:04)
--- NOTE | 2023-03-26 10:26 | PM.PNGS ---
Progress Note: A&P Assessment and Plan (1) Diverticulitis of colon with perforation: Code(s): K57.20 - Diverticulitis of large intestine with perforation and abscess without bleeding Status: Acute Assessment and Plan: Patient doing well. Pain is gone. No abdominal tenderness. Tolerating low-fiber diet. Discharge today on Augmentin and low-fiber diet. Follow-up with Dr. Ordaz in 2 weeks. (2) Tobacco dependence: Code(s): F17.200 - Nicotine dependence, unspecified, uncomplicated Status: Acute Assessment and Plan: Patient advised to stop smoking. Subjective Subjective Date/Time Seen: 03/26/23 10:26 Patient reports: no new complaints, pain is less (Abdominal pain essentially gone), tolerating a regular diet (Low-fiber diet), bowel movement and afebrile Review of Systems Review of Systems: All systems reviewed & are unremarkable except as noted in HPI and below (HPI) Exam Const: General: comfortable and no acute distress Nutritional Appearance: obese Orientation/consciousness: patient oriented x3 GI: Inspection: non-distended and obesity GI Palp: Yes Soft to palpation, No Tenderness to palpation present (GI), No Guarding due to palpation present (GI), No Hernia present, No Palpable mass present and No Rebound tenderness present Auscultation: normal bowel sounds Neuro: General: patient oriented x3 and no focal motor deficits Extrem: General: no calf tenderness and no edema Psych: Affect: normal affect Insight: Good insight present (Psych) Judgement: Good judgement present (Psych) Objective Data Vital Signs Vital Signs: Vital Signs - 24 hr 03/25/23 13:42 03/25/23 13:57 03/25/23 14:00 Temperature 36.9 C Pulse Rate 91 93 98 Respiratory Rate 16 18 18 Blood Pressure 128/73 Pulse Oximetry 100 Oxygen Delivery Fraction of Inspired Oxygen 03/25/23 17:49 03/25/23 17:59 03/25/23 20:01 Temperature 37.1 C Pulse Rate 90 90 96 Respiratory Rate 18 18 20 Blood Pressure 113/74 Pulse Oximetry 94 Oxygen Delivery Fraction of Inspired Oxygen 03/25/23 20:00 03/26/23 01:31 03/26/23 01:31 Temperature Pulse Rate 96 98 Respiratory Rate 20 18 Blood Pressure Pulse Oximetry 94 94 Oxygen Delivery Room Air Room Air Fraction of Inspired Oxygen 21 03/26/23 01:45 03/26/23 05:14 03/26/23 06:12 Temperature 36.7 C Pulse Rate 100 87 86 Respiratory Rate 18 20 18 Blood Pressure 113/52 L Pulse Oximetry 96 Oxygen Delivery Fraction of Inspired Oxygen 03/26/23 10:00 Temperature Pulse Rate Respiratory Rate Blood Pressure Pulse Oximetry Oxygen Delivery Room Air Fraction of Inspired Oxygen Intake/Output Intake/Output: Intake & Output 03/23/23 03/24/23 03/25/23 03/26/23 23:59 23:59 23:59 23:59 Intake Total 2200 3460 2170 350 Balance 2200 3460 2170 350 Meds/Results Medications: Active Medications Generic Name Dose Route Start Last Admin Trade Name Freq PRN Reason Stop Dose Admin Albuterol 2.5 mg 03/23/23 14:00 03/26/23 06:10 Albuterol Sulfate Neb 2.5 Mg/3 Ml Inh INHALATION 2.5 mg Q6HRT NOREEN Administration Enoxaparin Sodium 40 mg 03/25/23 09:00 03/26/23 10:04 Enoxaparin 40 Mg/0.4 Ml Syringe SUB-Q 40 mg DAILY NOREEN Administration Piperacillin/Tazobactam/Dextrose 3.375 gm in 50 mls @ 100 mls/hr 03/22/23 21:00 03/26/23 05:32 Zosyn 3.375 Gm/Ns 50 Ml IVPB 100 mls/hr Q6HR NOREEN Administration Ipratropium [place] 0.5 mg 03/23/23 14:00 03/26/23 06:11 Ipratropium Br 0.02% Inh Soln 0.5 Mg/2.5 Ml Vial INHALATION 0.5 mg Q6HRT NOREEN Administration Melatonin 5 mg 03/25/23 21:00 03/25/23 21:39 Melatonin 5 Mg Tablet PO 5 mg HS NOREEN Administration Morphine Sulfate 2 mg 03/23/23 05:42 03/23/23 21:10 Morphine Sulfate (*Crx) 2 Mg/Ml Inj IV PUSH 2 mg Q2H PRN Administration Pain Rated 7-10 Ondansetron HCl 4 mg 03/22/23 12:32 03/23/23 19:05 Ondansetron Inj 4
--- NOTE | 2023-03-26 10:32 | PM.DS ---
DS: Admitting Diagnosis Discharge Date 03/26/23 Admitting Diagnosis Diverticulitis with perforation DS: Discharge Diagnosis Discharge Diagnosis (1) Diverticulitis of colon with perforation: Code(s): K57.20 - Diverticulitis of large intestine with perforation and abscess without bleeding Status: Acute (2) Abnormal urinalysis: Code(s): R82.90 - Unspecified abnormal findings in urine Status: Acute (3) Tobacco dependence: Code(s): F17.200 - Nicotine dependence, unspecified, uncomplicated Status: Acute DS: Summary Hospital Course Hospital Course: This is a 42-year-old female that is a current smoker with an insignificant past medical history the presented to the ED on 03/22/2023 due to a sharp abdominal pain in the right lower quadrant. Patient had a bowel movement the day of presentation in denied any blood or mucus in the stool. CT abdomen pelvis showed perforated sigmoid colon diverticulitis with a small amount of scattered free peritoneal gas and minimal fluid with no drainable abscess noted. She was started on Zosyn and General surgery was consulted. General surgery recommended a conservative approach with bowel rest, IV fluids and antibiotics. Patient's abdominal pain improved over the days with this treatment. Patient was started back on a diet and she tolerated this well. General surgery cleared patient for discharge and advised antibiotics at discharge. Her labs and vital signs have remained stable and she is medically clear for discharge at this time. Time Spent with Patient Time attestation: Total time spent providing and/or coordinating discharge services: Exam Narrative: GENERAL: Comfortable, no acute distress HENMT: moist mucous membranes EYES: EOM intact b/l NECK: no lymphadenopathy RESPIRATORY: diffuse expiratory wheezing. CARDIO: RRR GI: soft, nontender, bowel sounds present SKIN: no rashes EXTREMITIES: no edema, redness or tenderness DS: Data Data Completed and Pending Labs on day of discharge: Labs from last 24 hours 03/26/23 04:16 WBC 7.0 RBC 3.84 L Hgb 11.7 L Hct 36.9 L MCV 96.1 MCH 30.5 MCHC 31.7 L RDW 11.9 Plt Count 299 MPV 11.0 H Sodium 136 L Potassium 3.8 Chloride 102 Carbon Dioxide 30 Anion Gap 4 L BUN 2 L Creatinine 0.70 Estim Creat Clear Calc 123 Estimated GFR > 60 Glucose 104 Calcium 8.5 Discharge Plan Discharge Attending physician on discharge: Amari Hill Consulting providers: William Ordaz Discharging Clinician: Kayla Maradiaga Anticipated Discharge Date/Time: 03/26/23 10:28 Patient Disposition: Home, Self-Care Activity: may shower and as tolerated Diet: low fiber Discharge Instructions: Continue low-fiber diet for 2 weeks Specifically avoid peanuts, popcorn, sunflower seeds, pumpkin seeds Take antibiotics until they are gone. See Dr. Ordaz in 2 weeks. Stop smoking Discharge disposition: Take medications as prescribed Monitor blood pressures Avoid social areas, you wear a mask when in social settings Encouraged to continue with yearly vaccinations Return to the emergency department if he developed sudden shortness of breath, chest pain, nausea, vomiting, upset stomach or intractable diarrhea Return to the emergency department if you develop fever greater than 100.4 Follow-up with the primary care physician within 1-2 weeks Thank you for [facility] for your healthcare needs Patient Instructions: Antibiotic Form, How to Stop Smoking (DC) Stand Alone Forms: General Discharge Information Follow-up/Referrals: William Ordaz MD [Physician] - 2 Weeks (Follow-up see Dr. Ordaz in the office and 2 weeks after discharge. Patient to call [phone] for an appointment.) Discharge Medications: New amoxicillin-pot clavulanate [Augmentin] 500-125 mg tablet 1 tablet PO Q12H Qty: 20 0RF metronidazole 500 mg tablet 500 mg PO Q8H Qty: 30
== END 2023-03-26 13:20 | disposition home or self-care (01) | DRG 244 ==
LOC: ANHED 12:35 → ANH2MED 13:13
PROVIDERS: Internal Medicine Critical Care Medicine; Physician Assistant; Surgery; Admitting Provider Internal Medicine; Emergency Provider Nurse Practitioner Family; Visit Provider Surgery
DX: K57.20 Diverticulitis of large intestine with perforation and abscess without bleeding (principal); E66.9 Obesity, unspecified; F17.210 Nicotine dependence, cigarettes, uncomplicated; R82.90 Unspecified abnormal findings in urine; Z68.42 Body mass index [BMI] 45.0-49.9, adult
CPT/HCPCS: 36415; 74177; 80048; 80053; 81001; 81025; 83605; 83690; 83735; 85025; 85027; 87086; 94640; 96361; 96365; 96375; 99285; A9270; J1170; J1650; J2270; J2405; J2543; J7030; J7120; Q9967